=== PATIENT | male | born 1990 | race Caucasian/White ===

== ENCOUNTER 2018-11-03 11:17 | Emergency (ER) | payer MEDICAID ==
--- NOTE | 2018-11-03 11:56 | EDM.PDOC ---
ED HPI GENERAL MEDICAL PROBLEM - General Chief Complaint: Cardiovascular Problem Stated Complaint: SOB, PALPITATIONS Time Seen by Provider: 11/03/18 11:47 Source of Information: Reports: Patient, RN Notes Reviewed History Limitations: Reports: No Limitations - History of Present Illness INITIAL COMMENTS - FREE TEXT/NARRATIVE: 28-year-old gentleman presents emergency department today complaint of palpitations, he states this had palpitations on and off for the last 6 months over the last 2 days it has progressively gotten worse seem to happen every 5 minutes. He does feel short of breath at rest and under exertion no nausea vomiting no diaphoresis no significant heart history in the family - Related Data Allergies Allergy/AdvReac Type Severity Reaction Status Date / Time No Known Allergies Allergy Verified 11/03/18 11:42 Home Meds: Home Meds NK [No Known Home Meds] 11/03/18 [History] Past Medical History HEENT History: Reports: Impaired Vision Neurological History: Reports: Concussion Psychiatric History: Reports: Anxiety - Past Surgical History Head Surgeries/Procedures: Reports: None HEENT Surgical History: Reports: Tonsillectomy Neurological Surgical History: Reports: None Musculoskeletal Surgical History: Reports: Shoulder Surgery, Other (See Below) Other Musculoskeletal Surgeries/Procedures:: left leg Dermatological Surgical History: Reports: None Social & Family History - Tobacco Use Smoking Status *Q: Current Every Day Smoker Years of Tobacco use: 5 Packs/Tins Daily: 0.1 Used Tobacco, but Quit: No - Caffeine Use Caffeine Use: Reports: Coffee - Alcohol Use Days Per Week of Alcohol Use: 7 Number of Drinks Per Day: 6 Total Drinks Per Week: 42 - Recreational Drug Use Recreational Drug Use: Yes Drug Use in Last 12 Months: Yes Recreational Drug Type: Reports: Marijuana/Hashish Recreational Drug Use Frequency: Weekly ED ROS GENERAL - Review of Systems Review Of Systems: See Below Constitutional: Reports: No Symptoms HEENT: Reports: No Symptoms Respiratory: Reports: Shortness of Breath Cardiovascular: Reports: Dyspnea on Exertion, Palpitations GI/Abdominal: Reports: No Symptoms ED EXAM, GENERAL - Physical Exam Exam: See Below Exam Limited By: No Limitations General Appearance: Alert, WD/WN, No Apparent Distress Head: Atraumatic, Normocephalic Neck: Normal Inspection, Supple, Non-Tender, Full Range of Motion Respiratory/Chest: No Respiratory Distress, Lungs Clear, Normal Breath Sounds, No Accessory Muscle Use, Chest Non-Tender Cardiovascular: Regular Rate, Rhythm, No Murmur GI/Abdominal: Soft, Non-Tender Course - Vital Signs Last Recorded V/S: Last Vital Signs Temp 97.6 F 11/03/18 11:43 Pulse 75 11/03/18 11:43 Resp 8 L 11/03/18 11:43 BP 138/80 11/03/18 11:43 Pulse Ox 99 11/03/18 11:43 - Orders/Labs/Meds Orders: Active Orders 24 hr Category Date Time Status Cardiac Monitoring [RC] .As Directed Care 11/03/18 11:54 Active EKG Documentation Completion [RC] ASDIRECTED Care 11/03/18 11:55 Active Chest 2V [CR] Stat Exams 11/03/18 11:54 Taken EKG 12 Lead [EK] Stat Ther 11/03/18 11:54 Ordered Labs: Laboratory Tests 11/03/18 11/03/18 11/03/18 Range/Units 12:03 12:03 12:03 WBC 6.1 (4.5-11.0) K/uL RBC 4.96 (4.30-5.90) M/uL Hgb 14.9 (12.0-15.0) g/dL Hct 42.7 (40.0-54.0) % MCV 86 (80-98) fL MCH 30 (27-31) pg MCHC 35 (32-36) % Plt Count 272 (150-400) K/uL Neut % (Auto) 56 (36-66) % Lymph % (Auto) 31 (24-44) % Garza % (Auto) 11 H (2-6) % Eos % (Auto) 1 L (2-4) % Baso % (Auto) 1 (0-1) % D-Dimer, Quantitative < 100 (0.0-400.0) ng/mL Sodium 138 L (140-148) mmol/L Potassium 3.1 L (3.6-5.2) mmol/L Chloride 101 (100-108) mmol/L Carbon Dioxide 24 (21-32) mmol/L Anion Gap 16.1 H (5.0-14.0) mmol/L BUN 9 (7-18) mg/dL Creatinine 1.1 (0.8-1.3) mg/dL Est Cr Clr Drug Dosing 112.99 mL/min Estimated GFR (MDRD) > 60 (>60) Glucose 108 H (74-106) mg/dL Calcium 9.4 (8.5-10.1) mg/dL Total Bilirubin 0.7 (0.2-1.0) mg/dL AST 37 (15-37) U/L ALT 52 (12-78) U/L Alkaline Phosphatase 41 L (46-116) U/L Troponin I < 0.017 (0.000-0.056) ng/mL Total Protein 7.4 (6.4-8.2) g/dL Albumin 4.2 (3.4-5.0) g/dL Globulin 3.2 (2.3-3.5) g/dL Albumin/Globulin Ratio 1.3 (1.2-2.2) Departure - Departure Time of Disposition: 12:56 Disposition: Home, Self-Care 01 Condition: Fair Clinical Impression: Palpitation Referrals: Darnell Rizzo [facility] [Primary Care Provider] - Forms: ED Department Discharge Additional Instructions: Try reducing caffeine and alcohol please follow-up with your primary care in 3- 5 days for reevaluation call or return to the emergency department worsening of symptoms - My Orders Last 24 Hours: My Active Orders 11/03/18 11:54 Cardiac Monitoring [RC] .As Directed Chest 2V [CR] Stat EKG 12 Lead [EK] Stat 11/03/18 11:55 EKG Documentation Completion [RC] ASDIRECTED - Assessment/Plan Last 24 Hours: My Active Orders 11/03/18 11:54 Cardiac Monitoring [RC] .As Directed Chest 2V [CR] Stat EKG 12 Lead [EK] Stat 11/03/18 11:55 EKG Documentation Completion [RC] ASDIRECTED Plan: Assessment Acuity = acute Site and laterality = palpitations Etiology = unclear etiology suspicious for PACs Manifestations = none Location of injury = Home Lab values = CBC, CMP, troponin, d-dimer all within normal limits EKG demonstrates normal sinus rhythm Plan I did discuss with him options he is going to try and reduce his caffeine and alcohol intake follow-up primary care 3-5 days for reevaluation This note was dictated using [employer] voice recognition software please call with any questions on syntax or grammar.
--- NOTE | 2018-11-03 13:14 | CRLCR ---
HISTORY: Palpitations. TECHNIQUE: Two views of the chest. COMPARISON: No prior. FINDINGS: Cardiac size and pulmonary vasculature within normal limits. No lung infiltrate or pulmonary edema. No pneumothorax or pleural effusion. No acute bony abnormality. IMPRESSION: No acute disease. Dictated by Chi Queen MD @ 11/03/2018 1:13:34 PM Dictated by: Chi Queen MD @ 11/03/2018 13:13:38 (Electronically Signed)
== END 2018-11-03 13:05 | disposition home or self-care (01) ==
LOC: JP.ED 11:17
DX: R00.2 Palpitations (principal); F17.210 Nicotine dependence, cigarettes, uncomplicated; Z98.890 Other specified postprocedural states
CPT/HCPCS: 36415; 71046; 80053; 84484; 85025; 85379; 93005; 99285-25